=== PATIENT | female | born 1965 | race Caucasian/White ===

== ENCOUNTER 2020-12-22 14:44 | Emergency (ER) | payer BC ==
[~2020-12-22] VITALS: Ht 177.8 cm; Wt 104.3 kg
[2020-12-22] MEDS ORDERED: HYDROCODONE/APAP 5-325MG TABLET PO ONE (15:00)
[2020-12-22] MEDS ORDERED: HYDROCODONE/APAP 5-325MG TABLET ONE (15:10)
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
[2020-12-22] MEDS ORDERED: HYDR-4209 PO (15:46)
--- NOTE | 2020-12-22 15:54 | NUR ---
Patient discharged to home in stable condition. Written and verbal after care instructions given. Patient verbalizes understanding of instructions. Stressed follow up or return to ER for worsening s/s. Pt. walks in steady gait.
[2020-12-22 15:55] VITALS: BP 115/82
== END 2020-12-22 15:55 | disposition home or self-care (01) ==
LOC: ER 14:44
DX: S09.90XA Unspecified injury of head, initial encounter (principal); V49.60XA Unspecified car occupant injured in collision with unspecified motor vehicles in traffic accident, initial encounter; Y92.410 Unspecified street and highway as the place of occurrence of the external cause; Z86.718 Personal history of other venous thrombosis and embolism; Z79.01 Long term (current) use of anticoagulants; Z86.16 Personal history of COVID-19; Z98.84 Bariatric surgery status; R51.9 Headache, unspecified
CPT/HCPCS: 70450; A4663